=== PATIENT | male | born 1950 | race Caucasian/White ===

== ENCOUNTER 2020-02-20 07:10 | Day surgery (SDC) | payer MEDICARE, MEDICAID ==
[2020-02-16 08:18] LABS: BASOPHILS % (AUTO) 0.7 % (0-1); EOSINOPHILS # (AUTO) 0.1 X10'3 (0-0.9); EOSINOPHILS % (AUTO) 1.8 % (0-6); HEMATOCRIT 39.6 % (42.0-52.0); HEMOGLOBIN 13.3 g/dl (14.0-17.9); LYMPHOCYTES % (AUTO) 21.8 % (21-51); MEAN CORPUSCULAR HGB CONC 33.7 g/dL (33.0-36.5); MEAN CORPUSCULAR VOLUME 103.7 FL (78-98); MEAN PLATELET VOLUME 7.3 FL (7.4-10.4); MONOCYTES # (AUTO) 0.5 X10'3 (0-0.9); NEUTROPHILS % (AUTO) 65.7 % (42-75); PLATELET COUNT 204 X10'3 (140-440); RED BLOOD COUNT 3.82 X10'6 (4.70-6.10); WHITE BLOOD COUNT 4.6 X10'3 (4.5-11.0)
[2020-02-16 08:29] LABS: ANION GAP 11 (8-16); BLOOD UREA NITROGEN 15 MG/DL (7-18); CALCIUM 8.7 MG/DL (8.5-10.1); CHLORIDE 103 MMOL/L (99-107); CREATININE 1.07 MG/DL (0.60-1.10); GLUCOSE 126 MG/DL (70-104); POTASSIUM 3.9 MMOL/L (3.5-5.1); SODIUM 139 MMOL/L (135-145); TOTAL CARBON DIOXIDE 25.2 MMOL/L (24-32); eGFR 69 ML/MIN
[2020-02-16 08:33] LABS: PARTIAL THROMBOPLASTIN TIME 26 SECONDS (22-32)
[2020-02-20] VITALS (9 sets, daily range): BP systolic 116–147; BP diastolic 71–92
[~2020-02-20] VITALS: Ht 177.8 cm; Wt 68.7 kg
[~2020-02-20 07:10] MED LIST: AMLO10TA4 PO; ASPI81TA52 PO; ATOR20TA66 PO; BUPR150T8 PO; LISI-604 PO; MULT-933 PO
[2020-02-20] MEDS ORDERED: normal saline 1,000 ML IV SCH (07:30)
[2020-02-20] MEDS ORDERED: diphenhydrAMINE 25mg capsule PO PRN (07:30)
[2020-02-20] MEDS ORDERED: LIDOcaine/PRILOcaine 5gm cream TP ONE (07:30)
[2020-02-20] MEDS ORDERED: LORazepam 0.5 MG tablet PO PRN (07:30)
[2020-02-20] MEDS ORDERED: SERT100T10 PO (08:01)
[2020-02-20] MEDS ORDERED: TRAZ-251 PO (08:01)
[2020-02-20] MEDS ORDERED: BUPR100T7 PO (08:01)
[2020-02-20] MEDS ORDERED: ATOR40TA72 PO (08:01)
[2020-02-20] MEDS ORDERED: ASPI-280 PO (08:01)
[2020-02-20] MEDS ORDERED: LISI-604 PO (08:01)
[2020-02-20] MEDS ORDERED: nitroGLYCERIN-Tridil 50MG/D5W 250 ML IV ONE (11:04)
[2020-02-20] MEDS ORDERED: verapamil 2.5 mg/ml inj IV ONE (11:04)
[2020-02-20] MEDS ORDERED: midazolam 2 mg/2 ml injection ONE (11:04)
[2020-02-20] MEDS ORDERED: LIDOcaine 1% (10mg/ml)w/preservative injection 20ml MDV ONE (11:05)
[2020-02-20] MEDS ORDERED: iohexol 350MG/ML 100ml bottle IV ONE (11:05)
[2020-02-20] MEDS ORDERED: heparin 1,000unit/ml 10ml vial 10 ML ONE (11:05)
[2020-02-20] MEDS ORDERED: fentaNYL/PF 50MCG/1 ML 2ML syringe ONE (11:05)
--- NOTE | 2020-02-20 12:00 | NUR ---
RECIEVED REPORT FROM ERIK RN, PT IN LAB FOR HEART CATH, SPOUSE TO HORSE SHOER PT TO TX HOME. PT ANTICIPATING RADIAL APPROACH FOR HEART CATH.
[2020-02-20] MEDS ORDERED: HYDROcodone/acetaminophen 5mg/325mg tablet PO PRN (12:25)
[2020-02-20] MEDS ORDERED: ondansetron/PF 4mg/2ml inj IV PRN (12:25)
[2020-02-20] MEDS ORDERED: OXAZEpam 15mg capsule PO PRN (12:30)
[2020-02-20] MEDS ORDERED: HYDROcodone/acetaminophen 10/325mg tab PO PRN (12:30)
[2020-02-20] MEDS ORDERED: acetaminophen 325mg tablet PO PRN (12:30)
[2020-02-20] MEDS ORDERED: nitroGLYCERIN 0.4mg SUBLingual tab SL PRN (12:30)
[2020-02-20] MEDS ORDERED: proCHLORperazine 10 MG/2 ml inj IV PRN (12:30)
--- NOTE | 2020-02-20 15:00 | NUR ---
REMOVED VASC BAND, CLEANSED WITH STERILE 2X2 AND NS. APPLIED STERILE 2X2 AND TEGADERM. TOPPED WITH FOLDED 4X4'S AND COFLEX. PT AWARE THAT TOP DRESSING IS FOR COMFORT AND CAN BE REMOVED NEEDED, TEGADERM TO BE REMOVED PRIOR TO SHOWER 24-48 HOURS. SITE CLEAR OF OOZING AND BRUISING
== END 2020-02-20 16:15 | disposition home or self-care (01) ==
LOC: SSTAY O 07:10
PROVIDERS: ATTEND Internal Medicine Interventional Cardiology
DX: R94.39 Abnormal result of other cardiovascular function study (principal); I20.8 Other forms of angina pectoris; I10 Essential (primary) hypertension; E78.5 Hyperlipidemia, unspecified; I42.9 Cardiomyopathy, unspecified; F10.10 Alcohol abuse, uncomplicated; I34.1 Nonrheumatic mitral (valve) prolapse; Z87.891 Personal history of nicotine dependence; Z79.82 Long term (current) use of aspirin; Z79.899 Other long term (current) drug therapy; Z88.2 Allergy status to sulfonamides; Z79.01 Long term (current) use of anticoagulants
CPT/HCPCS: 36415; 80048; 85025; 85610; 85730; 93458; 99152; 99153; C1769; C1894; J1644; J2001; J2250; J3010; J7030; Q0163; Q9967; 93005; A4620; A5120; J3490